=== PATIENT | male | born 1975 | race Caucasian/White ===

== ENCOUNTER 2019-04-05 16:56 | Emergency (ER) | payer SELFPAY ==
[2019-04-05] MEDS ORDERED: Morphine 4 MG/ML VIAL (1 ml) 4 MG/ML VIAL IV ONE (17:12)
[2019-04-05] MEDS ORDERED: Ondansetron INJ* 2 MG/ML VIAL IV ONE (17:12)
[2019-04-05] MEDS ORDERED: HYDROmorphone INJ1* 1 MG/ML SYRINGE IV SLOW PU ONE (17:33)
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
[2019-04-05 17:56] LABS: ABS Basophils 0.1 10^3/ul (0-0.2); ABS Eosinophils 0.1 10^3/ul (0-0.6); ABS Lymphocytes 1.4 10^3/ul (1.0-4.8); ABS Monocytes 0.7 10^3/ul (0-0.8); ABS Neutrophils 7.5 10^3/ul (1.5-7.7); Eosinophil % 1.2 %; Hematocrit 43 % (42-52); Hemoglobin 14.4 g/dL (14.0-18.0); Lymphocyte % 14.3 %; Mean Corpuscular HGB Conc 34 g/dL (31-36); Mean Corpuscular Hemoglobin 31 pg (27-31); Mean Corpuscular Volume 92 fL (80-94); Mean Platelet Volume 7.4 fL (7.4-10.4); Nucleated Red Blood Cells % 0.1; Platelet Count 223 10^3/uL (150-450); Red Blood Count 4.65 10^6 /uL (4.18-5.48); Red Cell Distribution Width 13 % (10-15); White Blood Count 9.8 10^3/uL (3.5-10.8)
[2019-04-05 18:00] LABS: ALT 20 U/L (7-52); AST 21 U/L (13-39); Albumin 4.4 g/dL (3.2-5.2); Albumin/Globulin Ratio 1.8 (1-3); Alkaline Phosphatase 72 U/L (34-104); Anion Gap 7 mmol/L (2-11); BUN/Creatinine Ratio 12.9 (8-20); Blood Urea Nitrogen 11 mg/dL (6-24); CO2 Carbon Dioxide 27 mmol/L (22-32); Calcium 9.3 mg/dL (8.6-10.3); Chloride 100 mmol/L (101-111); EGFR African American 118.5 (>60); EGFR Non-African American 97.9 (>60); Globulin 2.5 g/dL (2-4); Glucose 121 mg/dL (70-100); Potassium 3.3 mmol/L (3.5-5.0); Sodium 134 mmol/L (135-145); Total Protein 6.9 g/dL (6.4-8.9)
[2019-04-05 18:04] LABS: Troponin I 0.05 ng/mL (<0.03)
[2019-04-05] MEDS ORDERED: Iohexol 350* (CONTRAST) 500 ML MDV IV ONE (19:03)
[2019-04-05 19:16] LABS: Alcohol < 10 mg/dL (<10)
[2019-04-05 20:21] LABS: Troponin I 0.05 ng/mL (<0.03)
[2019-04-05 21:38] VITALS: BP 148/92
== END 2019-04-05 21:38 | disposition left against medical advice (07) ==
LOC: ED 16:56
DX: S43.101A Unspecified dislocation of right acromioclavicular joint, initial encounter (principal); S26.91XA Contusion of heart, unspecified with or without hemopericardium, initial encounter; R79.89 Other specified abnormal findings of blood chemistry; V27.4XXA Motorcycle driver injured in collision with fixed or stationary object in traffic accident, initial encounter; Y92.410 Unspecified street and highway as the place of occurrence of the external cause; F17.200 Nicotine dependence, unspecified, uncomplicated; Z88.0 Allergy status to penicillin
CPT/HCPCS: 36415; 70450; 71045; 71275; 72125; 74174; 80053; 80320; 83605; 84484; 85025; 93005; 96374; 99284; G0480; J1170; J2270; J2405; Q9967